=== PATIENT | female | born 1945 | race Caucasian/White ===

== ENCOUNTER 2016-12-13 14:56 | Inpatient (IN) | payer OTHER, MEDICARE ==
[~2016-12-13] VITALS: Ht 162.6 cm; Wt 65.3 kg
[~2016-12-13 14:56] MED LIST: ADULT LOW DOSE81 M1 PO; ADVAIR 250/501 DISK IH; ALBUTEROL2.5 MG/0.5 IH; ALEGRA PO; ALLERGY25 M2 PO; ATIVAN1 M1 PO; ATIVAN1 MG PO; AVELOX400 MG PO; AZELASTINE137 MCG/0. NS; AZITHROMYCIN500 M1 PO; Astelin, Astepro 0.1 BOTH NARES; Ativan PO; CALCIUM 1,2001 EACH PO; CALCIUM 500 +1 EAC5 PO; CALCIUM 500 WI1 EAC2 PO; CALTRATE 6001 TABLE1 PO; CALTRATE 6001 TABLE2 PO; CEBRIA PO; CEFTIN500 MG PO; DUONEB 2.5-0.5 M3 ML IH; FISH OIL 1,2001 EAC3 PO; LEVAQUIN750 MG PO; LEVOFLOXACIN750 MG PO; LEVOTHROID50 MCG PO; LEVOTHYROXINE50 MCG PO; LO-DOSE ASPIRIN81 M1 PO; LORAZEPAM1 MG PO; LOW DOSE ASPIRI81 M1 PO; MUCINEX600 MG PO; MULTI-VITAMIN1 EAC1 PO; NASAL SPRAY EXT30 ML BOTH NARES; NORCO 5/3251 TABLET PO; PAXIL10 MG PO; PAXIL20 MG PO; PREDNISONE10 MG PO; PREDNISONE20 MG PO; PREVACID15 MG PO; PRIMATENE ASTH1 EACH PO; PROAIR HFA8.5 GM IH; PROVENTIL,2.5 MG/3 M IH; SALINE NASAL SP45 ML BOTH NARES; SIMVASTATIN20 MG PO; SPIRIVA1 INHALATI IH; SYNTHROID50 MCG PO; THERAGRAN1 TABLET PO; ZANTAC150 MG PO; ZITHROMAX250 MG PO; ZOCOR10 MG PO; ZOCOR40 MG PO; Zocor PO
[2016-12-13 16:42] LABS: MCH 30.9 PG (29.0-34.0); MCHC 31.8 G/DL (30.0-36.0); MCV 97.3 FL (83-99); MEAN PLAT.VOLUME 9.4 uM^3 (9.5-12.4); PLATELET COUNT 234 K/uL (156-360); RBC DIS.WIDTH-SD 53.9 % (39-53); RED BLOOD COUNT 4.01 M/uL (3.80-5.20); WHITE BLOOD COUNT 12.7 K/uL (4.1-10.2)
[2016-12-13 16:54] LABS: CHLORIDE 101 mEq/L (99-109); POTASSIUM 4.1 mEq/L (3.7-5.4); SODIUM 138 mEq/L (136-147)
[2016-12-13 16:56] LABS: GLUCOSE 128 mg/dL (70-99)
[2016-12-13 16:58] LABS: ANION GAP 10 MEQ/L (2-14)
[2016-12-13 17:00] LABS: GFR ESTIMATE (CALCULATED) > 59 mL/min/
[2016-12-13 17:01] LABS: UREA NITROGEN (BUN) 17 mg/dL (9-23)
[2016-12-13 17:04] LABS: TROP-I INTERPRETATION NEGATIVE; TROPONIN-I < 0.01 ng/mL (0.0-0.30)
[2016-12-13] MEDS ORDERED: DELTASONE20 M1 PO (19:32)
[2016-12-13] MEDS ORDERED: FAMOTIDINE20 MG PO (19:33)
[2016-12-13] MEDS ORDERED: AZITHROMYCIN250 MG1 PO (19:33)
[2016-12-13] MEDS ORDERED: FLONASE16 G1 BOTH NARES (19:34)
[2016-12-13] MEDS ORDERED: OMEPRAZOLE40 M1 PO (19:34)
[2016-12-13] MEDS ORDERED: AZELASTINE137 MCG/0. BOTH NARES (19:34)
[2016-12-13] MEDS ORDERED: TRIAMCINOLONE A15 GM TP (19:35)
[2016-12-13 20:34] LABS: EOSINOPHIL (%) 0.2 % (0-5); IMMATURE GRANULOCYTE (%) 2.2 % (0.0-0.7); IMMATURE GRANULOCYTE COUNT 0.3 K/uL; INSTRUMENT ABS NEUTROPHIL CT 10.8 K/uL; LYMPHOCYTE COUNT 0.8 K/uL (1.0-2.8); MONOCYTE (%) 3.2 % (3-12); MONOCYTE COUNT 0.4 K/uL (0-0.8); NEUTROPHIL (%) 87.6 % (45-76); NEUTROPHIL COUNT 10.8 K/uL (1.8-6.4)
[2016-12-13 20:41] LABS: TOTAL BILIRUBIN 0.6 mg/dL (0.0-1.0)
[2016-12-13 20:42] LABS: ALKALINE PHOSPHATASE 112 IU/L (3-129)
[2016-12-13 20:44] LABS: DIRECT BILIRUBIN 0.2 mg/dL (0.0-0.3)
[2016-12-13 20:52] LABS: CARBON DIOXIDE (BICARBONATE) 29.9 MEQ/L (20-31)
[2016-12-13 21:36] VITALS: BP 142/76
[2016-12-13 22:54] LABS: ADD MIUA? NO; BILIRUBIN NEGATIVE; BLOOD NEGATIVE; COLOR YELLOW ((YELLOW)); GLUCOSE (STRIP) NEGATIVE; KETONES NEGATIVE; LEUKOCYTES NEGATIVE; NITRITE NEGATIVE; PROTEIN (STRIP) NEGATIVE; SPECIFIC GRAVITY 1.027 (1.000-1.030); UCUL ADDED? NO; UROBILINOGEN 0.2 MG/DL (0.2-1.0)
[2016-12-14 03:39] VITALS: BP 138/72
[2016-12-14 07:00] VITALS: BP 122/70
[2016-12-14 07:06] LABS: INTERNAL CONTROL VALID? YES
[2016-12-14 07:11] LABS: ANION GAP 9 MEQ/L (2-14); CHLORIDE 106 MEQ/L (99-109); GFR ESTIMATE (CALCULATED) > 59 mL/min/; GLUCOSE 126 mg/dL (70-99); POTASSIUM 4.7 MEQ/L (3.7-5.4); SAMPLE HEMOLYSIS CHECK 0; SAMPLE ICTERIC CHECK 0; SAMPLE LIPEMIA CHECK 0; SODIUM 142 MEQ/L (136-147); UREA NITROGEN (BUN) 15 mg/dL (9-23)
[2016-12-14 07:25] LABS: EOSINOPHIL (%) 0 % (0-5); HEMATOCRIT 35.5 % (36.0-46.0); IMMATURE GRANULOCYTE (%) 4.7 % (0.0-0.7); IMMATURE GRANULOCYTE COUNT 0.4 K/uL; INSTRUMENT ABS NEUTROPHIL CT 6.2 K/uL; MCH 31.2 PG (29.0-34.0); MCHC 30.7 G/DL (30.0-36.0); MEAN PLAT.VOLUME 9.4 uM^3 (9.5-12.4); MONOCYTE (%) 3.9 % (3-12); MONOCYTE COUNT 0.3 K/uL (0-0.8); NEUTROPHIL (%) 78.3 % (45-76); NEUTROPHIL COUNT 6.2 K/uL (1.8-6.4); PLATELET COUNT 217 K/uL (156-360); RBC DIS.WIDTH-CV 15.1 % (11.8-14.6); RBC DIS.WIDTH-SD 56.7 % (39-53); RED BLOOD COUNT 3.49 M/uL (3.80-5.20); WHITE BLOOD COUNT 7.9 K/uL (4.1-10.2)
[2016-12-14 07:30] LABS: MCV 101.7 FL (83-99)
[2016-12-14 11:00] VITALS: BP 123/77
[2016-12-14 14:30] VITALS: BP 132/65
[2016-12-14 19:25] VITALS: BP 124/70
[2016-12-15 00:09] VITALS: BP 122/62
[2016-12-15 03:48] VITALS: BP 119/61
[2016-12-15 07:06] LABS: EOSINOPHIL (%) 0.5 % (0-5); EOSINOPHIL COUNT 0.1 K/uL (0-0.3); IMMATURE GRANULOCYTE (%) 4.9 % (0.0-0.7); IMMATURE GRANULOCYTE COUNT 0.5 K/uL; INSTRUMENT ABS NEUTROPHIL CT 7.3 K/uL; LYMPHOCYTE COUNT 1.5 K/uL (1.0-2.8); MCH 32.1 PG (29.0-34.0); MCHC 32.4 G/DL (30.0-36.0); MCV 99.1 FL (83-99); MEAN PLAT.VOLUME 9.8 uM^3 (9.5-12.4); MONOCYTE (%) 7.2 % (3-12); MONOCYTE COUNT 0.7 K/uL (0-0.8); NEUTROPHIL (%) 72.1 % (45-76); NEUTROPHIL COUNT 7.3 K/uL (1.8-6.4); PLATELET COUNT 237 K/uL (156-360); RBC DIS.WIDTH-SD 54.5 % (39-53); RED BLOOD COUNT 3.43 M/uL (3.80-5.20); WHITE BLOOD COUNT 10.1 K/uL (4.1-10.2)
[2016-12-15 07:13] VITALS: BP 136/91
[2016-12-15 07:32] LABS: ANION GAP 6 MEQ/L (2-14); CHLORIDE 103 MEQ/L (99-109); GFR ESTIMATE (CALCULATED) > 59 mL/min/; GLUCOSE 80 mg/dL (70-99); POTASSIUM 4.2 MEQ/L (3.7-5.4); SAMPLE HEMOLYSIS CHECK 0; SAMPLE ICTERIC CHECK 0; SAMPLE LIPEMIA CHECK 0; SODIUM 144 MEQ/L (136-147); UREA NITROGEN (BUN) 12 mg/dL (9-23)
[2016-12-15 11:18] VITALS: BP 104/71
[2016-12-15 15:35] VITALS: BP 113/71
[2016-12-15 19:56] VITALS: BP 101/74
[2016-12-16 00:35] VITALS: BP 119/56
[2016-12-16 04:15] VITALS: BP 125/77
[2016-12-16 06:55] VITALS: BP 114/73
[2016-12-16] MEDS ORDERED: DELTASONE20 M1 PO (09:01)
[2016-12-16] MEDS ORDERED: AUGMENTIN875 MG PO (09:01)
[2016-12-16] MEDS ORDERED: TRAMADOL HCL50 MG PO (09:01)
== END 2016-12-16 12:30 | disposition home or self-care (01) | DRG 197 ==
LOC: EME 14:56 → EDOF 19:34 → ENRESERV 19:41 → 2EAST 21:26
PROVIDERS: Internal Medicine; Physician Assistant; Physician Assistant Medical
DX: J67.9 Hypersensitivity pneumonitis due to unspecified organic dust (principal); J44.1 Chronic obstructive pulmonary disease with (acute) exacerbation; J96.11 Chronic respiratory failure with hypoxia; K21.9 Gastro-esophageal reflux disease without esophagitis; E03.9 Hypothyroidism, unspecified; D72.829 Elevated white blood cell count, unspecified; T38.0X5A Adverse effect of glucocorticoids and synthetic analogues, initial encounter; M85.80 Other specified disorders of bone density and structure, unspecified site; F41.9 Anxiety disorder, unspecified; F32.9 Major depressive disorder, single episode, unspecified; M16.11 Unilateral primary osteoarthritis, right hip; R13.10 Dysphagia, unspecified; F17.210 Nicotine dependence, cigarettes, uncomplicated; Z79.82 Long term (current) use of aspirin; Z80.0 Family history of malignant neoplasm of digestive organs; Z85.72 Personal history of non-Hodgkin lymphomas; Z85.830 Personal history of malignant neoplasm of bone; Z90.710 Acquired absence of both cervix and uterus; Z99.81 Dependence on supplemental oxygen
CPT/HCPCS: 71020; 71275; 73502; 80048; 80076; 81003; 82803; 83605; 83735; 84484; 85025; 85027; 85379; 87040; 87070; 87205; 87449; 93005; 94640; 94640 76; 94799; 99202; 99281; 99285; J0456; J0696; J1100; J1650; J7030; J7040; J7050; J7512